=== PATIENT | female | born 1990 | race Caucasian/White ===

== ENCOUNTER 2018-05-11 14:49 | Inpatient (IN) | payer OTHER ==
[~2018-05-11] VITALS: Ht 157.5 cm; Wt 3.6 kg
[2018-05-14] MEDS ORDERED: PRENATAL TABLE1 EAC1 PO (06:41)
[2018-05-14] MEDS ORDERED: IRON18 MG PO (06:42)
[2018-05-16] MEDS ORDERED: IBUPROFEN400 MG PO (15:41)
== END 2018-05-16 16:00 | disposition home or self-care (01) | DRG 788 ==
LOC: LDR 05-14 05:08 → OB/GYN 05-14 10:00 → SURG-SUITE 05-14 10:48
PROVIDERS: Obstetrics & Gynecology
PROC: 4A1HXCZ Monitoring of Products of Conception, Cardiac Rate, External Approach (ICD-10-PCS; 2018-05-14)
PROC: 10D00Z1 Extraction of Products of Conception, Low, Open Approach (ICD-10-PCS; principal; 2018-05-14 08:00)
DX: O34.211 Maternal care for low transverse scar from previous cesarean delivery (principal); O75.82 Onset (spontaneous) of labor after 37 completed weeks of gestation but before 39 completed weeks gestation, with delivery by (planned) cesarean section; Z3A.38 38 weeks gestation of pregnancy; Z37.0 Single live birth